=== PATIENT | female | born 1940 | race Caucasian/White ===

== ENCOUNTER → 2017-06-26 | Outpatient (CLI) | payer MEDICARE, OTHER ==
[2017-06-01 16:55] VITALS: BP 181/76
[~2017-06-26] MED LIST: ACETAMINOPHEN; BUPR150T8 PO; CALC600T4 PO; CEFP200T PO; CHOL10003 PO; CHOL500050 PO; CYCL10TA2 PO; DOCU-109 PO; FLUO40CA9 PO; FLUT1DIS3 IH; HYDROCODONE; LEVO100T5 PO; OMEP20CA9 PO; OXYB5TAB PO; OXYC-323 PO; OXYC-327 PO; PRED10TA16 PO; PRED20TA PO; VENTOLIN HFA18 GM IH
--- NOTE | 2017-06-26 12:13 | KCIC ---
EXAM: Dual energy x-ray absorptiometry (DEXA). HISTORY: Postmenopausal female presents for osteoporosis screening. COMPARISON: None. TECHNIQUE: Dual energy x-ray absorptiometry of the lumbar spine and left hip was performed. Calculation of bone mineral density based on standard deviations above or below the expected young adult normal value (T-score) was completed. FINDINGS: The average bone mineral density in the 1st through 4th lumbar vertebrae is 1.165 g/cmxcm, corresponding with a T-score of 1.1. The average total bone mineral density in the left hip is 0.781 g/cmxcm, corresponding with a T-score of -1.3. IMPRESSION: 1. Osteopenia measured at the left hip. 2. Normal bone mineral density measured at the lumbar spine. Note: Definitions established by the World Health Organization: 1. Normal: T-score is -1.0 or above. 2. Osteopenia: T-score is between -1.0 and -2.5 . 3. Osteoporosis: T-score is -2.5 or below. Electronically signed by: Mariam Castillo MD (06/26/2017 12:10 PM) [email or web address]
== END | disposition home or self-care (01) ==
LOC: KCIC DEXA 11:25
PROVIDERS: ATTEND Physician Assistant
DX: Z13.820 Encounter for screening for osteoporosis (principal); Z78.0 Asymptomatic menopausal state; M85.80 Other specified disorders of bone density and structure, unspecified site
CPT/HCPCS: 77080

== ENCOUNTER → 2017-12-30 | Outpatient (CLI) | payer MEDICARE, OTHER ==
[2017-12-30] MEDS: GADOBUTROL 7.5 MMOL/7.5 ML VIAL IV (14:56)
== END | disposition home or self-care (01) ==
LOC: KCIC MRI 13:44
DX: M12.88 Other specific arthropathies, not elsewhere classified, other specified site (principal); M48.07 Spinal stenosis, lumbosacral region; M43.8X4 Other specified deforming dorsopathies, thoracic region
CPT/HCPCS: 72158; A9585

== ENCOUNTER → 2018-01-20 | Outpatient (CLI) | payer MEDICARE, OTHER | END | disposition home or self-care (01) | LOC: KCIC 15:04 | DX: M43.16 Spondylolisthesis, lumbar region (principal); M48.54XD Collapsed vertebra, not elsewhere classified, thoracic region, subsequent encounter for fracture with routine healing; I10 Essential (primary) hypertension; E78.5 Hyperlipidemia, unspecified; E03.9 Hypothyroidism, unspecified | CPT/HCPCS: 72100 ==

== ENCOUNTER → 2018-02-11 | Outpatient (CLI) | payer MEDICARE, OTHER ==
[2018-02-11 14:20] LABS: ADD MAN DIFF? NO
[2018-02-11 14:22] LABS: BASO # 0.1 x10^3/uL (0.0-0.2); BASO % 1 % (0-3); EOS # 0.1 x10^3/uL (0.0-0.7); EOS % 1 % (0-3); HEMATOCRIT 35.9 % (36.0-47.0); HEMOGLOBIN 11.8 g/dL (12.0-15.5); LYMPH # 1.6 x10^3/uL (1.0-4.8); LYMPH % 17 % (24-48); MEAN CORPUSCULAR HEMOGLOBIN 30 pg (25-35); MEAN CORPUSCULAR HGB CONC 33 g/dL (31-37); MEAN CORPUSCULAR VOLUME 91 fL (79-100); MONO # 0.7 x10^3/uL (0.0-1.1); MONO % 7 % (0-9); NEUT # 6.9 x10^3uL (1.8-7.7); NEUT % 74 % (31-73); PLATELET COUNT 109 x10^3/uL (140-400); RED BLOOD COUNT 3.96 x10^6/uL (3.50-5.40); RED CELL DISTRIBUTION WIDTH 15.3 % (11.5-14.5); WHITE BLOOD COUNT 9.2 x10^3/uL (4.0-11.0)
[2018-02-11 14:40] LABS: ALBUMIN 2.8 g/dL (3.4-5.0); ALBUMIN/GLOBULIN RATIO 0.7 (1.0-1.7); BLOOD UREA NITROGEN 12 mg/dL (7-20); BUN/CREATININE RATIO 12 (6-20); CALCIUM 8.5 mg/dL (8.5-10.1); GLUCOSE 123 mg/dL (70-99); TOTAL PROTEIN 6.7 g/dL (6.4-8.2)
[2018-02-11 14:41] LABS: ALK PHOS 80 U/L (46-116); ALT (SGPT) 15 U/L (14-59); ANION GAP 5 (6-14); AST (SGOT) 13 U/L (15-37); CARBON DIOXIDE 32 mmol/L (21-32); CHLORIDE 104 mmol/L (98-107); GFR 53.9; POTASSIUM 3.9 mmol/L (3.5-5.1); SODIUM 141 mmol/L (136-145); TOTAL BILIRUBIN 0.3 mg/dL (0.2-1.0)
[2018-02-13 13:51] LABS: MRSA BY PCR Negative (Negative)
== END | disposition home or self-care (01) ==
LOC: SURGPAT 13:23
DX: Z01.818 Encounter for other preprocedural examination (principal); M51.16 Intervertebral disc disorders with radiculopathy, lumbar region; M48.062 Spinal stenosis, lumbar region with neurogenic claudication; J44.9 Chronic obstructive pulmonary disease, unspecified; I10 Essential (primary) hypertension; I25.10 Atherosclerotic heart disease of native coronary artery without angina pectoris; G43.809 Other migraine, not intractable, without status migrainosus; E11.9 Type 2 diabetes mellitus without complications; G30.8 Other Alzheimer's disease; F02.80 Dementia in other diseases classified elsewhere, unspecified severity, without behavioral disturbance, psychotic disturbance, mood disturbance, and anxiety
CPT/HCPCS: 36415; 80053; 85025; 87641

== ENCOUNTER 2018-02-18 10:33 | Observation (INO) | payer MEDICARE, OTHER ==
[~2018-02-18 10:33] MED LIST changes: -ACETAMINOPHEN; -BUPR150T8 PO; -CALC600T4 PO; -CEFP200T PO; -CHOL10003 PO; -CHOL500050 PO; -CYCL10TA2 PO; -DOCU-109 PO; -FLUO40CA9 PO; -FLUT1DIS3 IH; -HYDROCODONE; -LEVO100T5 PO; +LIDOCAINE 1% PF 2 ML VIAL. ID; +MORPHINE SULFATE 2 MG/ML DISP.SYRIN. IV; -OMEP20CA9 PO; -OXYB5TAB PO; -OXYC-323 PO; -OXYC-327 PO; -PRED10TA16 PO; -PRED20TA PO; +PROCHLORPERAZINE 10 MG/2 ML VIAL. IV; -VENTOLIN HFA18 GM IH; +fentaNYL PF VIAL 100 MCG/2 ML VIAL IV
[2018-02-18] MEDS ORDERED: PROPOFOL 20 ML IV (10:40)
[2018-02-18] MEDS ORDERED: PROPOFOL 50 ML IV (10:40)
[2018-02-18] MEDS ORDERED: LIDOCAINE 2% PF Vial for OR 5 ML VIAL. (10:40)
[2018-02-18] MEDS ORDERED: ROCURONIUM 50 MG/5 ML VIAL. (10:41)
[2018-02-18] MEDS ORDERED: fentaNYL PF VIAL 250 MCG/5 ML VIAL (10:41)
[2018-02-18] MEDS: IV RINGERS,LACTATED 1000ML 1,000 ML IV (11:13)
[2018-02-18] MEDS ORDERED: REMIFENTANIL 1 MG VIAL. IV (11:25)
[2018-02-18] MEDS ORDERED: PHENYLEPHRINE 10 MG/ML VIAL. (11:31)
[2018-02-18] MEDS: THROMBIN TOPICAL 20,000 UNIT SPRAY.SYRN KIT TP (12:57)
[2018-02-18] MEDS: BACITRACIN 50,000 UNIT in IV NORMAL SALINE 1000ML BAG 1,000 ML IRR (12:57)
[2018-02-18] MEDS: BUPIVAC MPF-EPI 0.5%-1:200000 30 ML VIAL. INJ (12:57)
[2018-02-18] MEDS: KETOROLAC 60 MG/2 ML INJ FOR OR. (12:57)
[2018-02-18] MEDS: GELATIN SPONGE SIZE 100. (12:57)
[2018-02-18] MEDS ORDERED: DEXAMETHASONE SOD PHOS 20 MG/5 ML VIAL. (13:01)
[2018-02-18] MEDS ORDERED: ONDANSETRON PF 4 MG/2 ML VIAL. (13:01)
[2018-02-18] MEDS ORDERED: GLYCOPYRROLATE 1 MG/5 ML VIAL. (13:31)
[2018-02-18] MEDS ORDERED: NEOSTIGMINE METHYLSULFATE 5 MG/5 ML SYRINGE. (13:31)
[2018-02-18] MEDS ORDERED: MAG HYDROX/ALUMINUM HYD/SIMETH 30 ML ORAL.SUSP PO (15:00)
[2018-02-18] MEDS ORDERED: 0.9 % SODIUM CHLORIDE 10 ML DISP.SYRIN. IV (15:00)
[2018-02-18] MEDS ORDERED: fentaNYL PF VIAL 100 MCG/2 ML VIAL IV (15:00)
[2018-02-18] MEDS ORDERED: MAGNESIUM HYDROXIDE 2,400 MG/30 ML ORAL.SUSP. PO (15:00)
[2018-02-18] MEDS ORDERED: diphenhydrAMINE 50 MG/ML VIAL IV (15:00)
[2018-02-18] MEDS ORDERED: diphenhydrAMINE HCL 25 MG CAPSULE PO (15:00)
[2018-02-18] MEDS ORDERED: ACETAMINOPHEN 325 MG TABLET. PO (15:00)
[2018-02-18] MEDS ORDERED: CALCIUM CARBONATE 500 MG TAB.CHEW PO (15:00)
[2018-02-18] MEDS ORDERED: oxyCODONE/APAP 5/325 1 TAB TABLET PO (15:00)
[2018-02-18] MEDS: fentaNYL PF VIAL 100 MCG/2 ML VIAL IV ×5 (15:23→16:58)
[2018-02-18] MEDS: POTASSIUM CL 20MEQ D5-0.45NACL 1,000 ML IV (16:56)
[2018-02-18] MEDS: oxyCODONE/APAP 5/325 1 TAB TABLET PO (19:49)
[2018-02-18] MEDS: DOCUSATE SODIUM 100 MG CAPSULE. PO (20:40)
[2018-02-18] MEDS: METHOCARBAMOL 750 MG TABLET PO (20:40)
[2018-02-18] MEDS: OXYBUTYNIN CHLORIDE 5 MG TABLET PO (20:40)
[2018-02-18] MEDS: BUDESONIDE 0.5 MG/2 ML NEBU. NEB (22:13)
[2018-02-18] MEDS: ALBUTEROL SULFATE 2.5 MG/3 ML NEBU. NEB (22:13)
[2018-02-19] MEDS: oxyCODONE/APAP 5/325 1 TAB TABLET PO ×3 (03:30→11:15)
[2018-02-19] MEDS: POTASSIUM CL 20MEQ D5-0.45NACL 1,000 ML IV (04:17)
[2018-02-19] MEDS: LEVOTHYROXINE 100 MCG TABLET PO (06:17)
[2018-02-19] MEDS: fentaNYL PF VIAL 100 MCG/2 ML VIAL IV (06:17)
[2018-02-19] MEDS: BUDESONIDE 0.5 MG/2 ML NEBU. NEB (07:04)
[2018-02-19] MEDS: ALBUTEROL SULFATE 2.5 MG/3 ML NEBU. NEB ×2 (07:05→11:33)
[2018-02-19] MEDS: MULTIVITAMIN with MINERAL TABLET. PO (08:17)
[2018-02-19] MEDS: DOCUSATE SODIUM 100 MG CAPSULE. PO (08:17)
[2018-02-19] MEDS: CITALOPRAM 10 MG TABLET. PO (08:17)
[2018-02-19] MEDS: buPROPion XL 150 MG TAB.ER.24H. PO (08:17)
[2018-02-19] MEDS: METHOCARBAMOL 750 MG TABLET PO ×2 (08:17→11:14)
[2018-02-19] MEDS ORDERED: NON FORMULARY ITEM (Fluticasone/Salmeterol (Advair 250-50 Diskus) 1 EACH) IH (09:00)
== END 2018-02-19 12:30 | disposition home or self-care (01) ==
LOC: SURG 10:33 → 4 SOUTHEST 16:27
DX: M48.062 Spinal stenosis, lumbar region with neurogenic claudication (principal); M54.16 Radiculopathy, lumbar region; J44.9 Chronic obstructive pulmonary disease, unspecified; M43.16 Spondylolisthesis, lumbar region; Z82.0 Family history of epilepsy and other diseases of the nervous system; Z82.49 Family history of ischemic heart disease and other diseases of the circulatory system; Z83.3 Family history of diabetes mellitus; Z85.3 Personal history of malignant neoplasm of breast; Z92.3 Personal history of irradiation
CPT/HCPCS: 63047; 76000; 88304; 88311; 94640; 96374; 96376; 97161-GP; A7015; G0378; G0379; G8978-CI-GP; G8979-CI-GP; G8980-CI-GP; J0690; J1100; J1885; J2001; J2405; J2704; J2710; J3010; J3490; J7030; J7613; J7626

== ENCOUNTER → 2018-05-20 | Outpatient (CLI) | payer MEDICARE, OTHER ==
[2018-02-19 11:38] VITALS: BP 123/63
[~2018-05-20] MED LIST changes: +ACETAMINOPHEN; +BUPR150T8 PO; +BUPR300T3 PO; +CALC600T4 PO; +CEFP200T PO; +CHOL10003 PO; +CHOL500050 PO; +CITA10TA4 PO; +CYCL10TA2 PO; +DOCU-109 PO; +FLUO40CA9 PO; +FLUT1DIS3 IH; +HYDROCODONE; +LEVO100T5 PO; -LIDOCAINE 1% PF 2 ML VIAL. ID; -MORPHINE SULFATE 2 MG/ML DISP.SYRIN. IV; +MULT1TAB52 PO; +OMEP20CA9 PO; +OXYB5TAB PO; +OXYC-323 PO; +OXYC-327 PO; +PRED10TA16 PO; +PRED20TA PO; -PROCHLORPERAZINE 10 MG/2 ML VIAL. IV; +VENTOLIN HFA18 GM IH; -fentaNYL PF VIAL 100 MCG/2 ML VIAL IV
--- NOTE | 2018-05-20 14:22 | KCIC ---
4 views lumbar spine compared to similar study dated January 202017 for back pain, postop surgery, history of vertebroplasty. FINDINGS: There is redemonstration of a severe anterior compression deformity at T12, status post vertebral augmentation, with large volume of cement extruded into the anterior vertebral body. There is an angular kyphosis at this level. There may be mild anterolisthesis of T11 on T12 as well, and a bony central canal stenosis at this level could be present given this configuration. There is grade 1 anterolisthesis of L4 on L5, with narrowing of intervertebral disc spaces at virtually all lumbar levels. Minimal retrolisthesis of L2 on L3 is present. Facet arthrosis is seen at multiple levels. No new fracture or acute osseous abnormality. IMPRESSION: 1. Severe compression deformity of T12 status post vertebral augmentation, resulting in severe angular kyphosis at this level. There may be slight anterolisthesis of T11 on T12 as well. If there is clinical concern for central bony canal stenosis, further evaluation with MRI would add clarity. 2. Multilevel degenerative changes throughout the lumbar spine. Electronically signed by: Ata Coughlin MD (05/20/2018 2:19 PM) [email or web address]
== END | disposition home or self-care (01) ==
LOC: KCIC 10:16
PROVIDERS: ATTEND Neurological Surgery
DX: M51.36 Other intervertebral disc degeneration, lumbar region (principal); M43.16 Spondylolisthesis, lumbar region; M48.061 Spinal stenosis, lumbar region without neurogenic claudication; M40.294 Other kyphosis, thoracic region; M43.8X4 Other specified deforming dorsopathies, thoracic region
CPT/HCPCS: 72110

== ENCOUNTER → 2018-08-06 | Outpatient (CLI) | payer MEDICARE, OTHER ==
[2018-02-19 11:38] VITALS: BP 123/63
[~2018-08-06] MED LIST changes: +OMEP20CA10 PO; -OMEP20CA9 PO; -OXYC-323 PO; -OXYC-327 PO; +OXYC1TAB15 PO; +OXYC1TAB19 PO
--- NOTE | 2018-08-06 13:52 | KCIC ---
EXAM: Pelvis, single view. HISTORY: Sciatica. COMPARISON: 05/20/2018 FINDINGS: A frontal view of the pelvis is obtained. There is no fracture, dislocation or subluxation. There are stable prominent sacroiliac joints with subchondral sclerosis. The femoral heads are normal in configuration. There is degenerative change at the lower lumbar levels. IMPRESSION: No acute osseous finding. Electronically signed by: Mariam Castillo MD (08/06/2018 1:48 PM) [facility]
== END | disposition home or self-care (01) ==
LOC: KCIC 13:29
PROVIDERS: ATTEND Internal Medicine Rheumatology
DX: M47.816 Spondylosis without myelopathy or radiculopathy, lumbar region (principal)
CPT/HCPCS: 72170

== ENCOUNTER → 2018-12-10 | Outpatient (CLI) | payer MEDICARE, OTHER ==
[2018-02-19 11:38] VITALS: BP 123/63
[~2018-12-10] MED LIST changes: +IOHEXOL 240 MG/ML 50ML VIAL. PO ONE; +IOHEXOL 300 MG/ML 100ML VIAL. IV ONE
--- NOTE | 2018-12-10 11:50 | KCIC ---
CT abdomen pelvis with contrast dated 12/10/2018. Comparison made to 09/22/2015. CLINICAL INDICATION: Left-sided back pain and abdominal pain. History of colon resection and left breast cancer. TECHNIQUE: Contiguous axial imaging the abdomen and pelvis performed after the administration of 89 cc Omnipaque 300. One or more of the following individualized dose reduction techniques were utilized for this examination: 1. Automated exposure control 2. Adjustment of the mA and/or kV according to patient size 3. Use of iterative reconstruction technique. FINDINGS: Limited images of lung bases show linear scar or atelectasis in the lower lobes. Heart size mildly enlarged. No pleural or pericardial effusion. Liver is of diffuse low density compatible with fatty infiltration. No apparent mass. Biliary tree normal in caliber. Gallbladder unremarkable. Spleen is normal in size. Pancreas is atrophic. Low-density nodule at the left adrenal gland measures 1.8 cm in size, unchanged. Right adrenal gland is unremarkable. Kidneys are symmetric in size and enhancement. No hydronephrosis. Evidence of prior right colon resection. There are scattered diverticula throughout the descending and sigmoid colon without significant pericolonic inflammatory changes. The small bowel is normal in caliber. No ascites or lymphadenopathy. Abdominal aorta normal in caliber. Images of pelvis show nondistended urinary bladder. Uterus is surgically absent. No free fluid or lymphadenopathy. Bone windows show severe wedge compression deformity of T12 status post vertebroplasty. Mild wedging at the inferior endplate of T11 has slightly progressed from prior study. Multilevel spondylosis. IMPRESSION: 1. No acute abnormality of abdomen or pelvis. 2. No significant interval change in left adrenal mass, likely adenoma. 3. Severe wedge compression deformity at T12 status post vertebroplasty. There is mild wedging of the inferior endplate of T11 that has slightly progressed from prior exam and could be related to progressive degeneration or mild endplate microcompression. 4. Diverticulosis with no evidence of acute diverticulitis. Electronically signed by: Travis Melendez MD (12/10/2018 11:47 AM) [email or web address]
== END | disposition home or self-care (01) ==
LOC: KCIC CT 09:35
PROVIDERS: ATTEND Family Medicine
DX: K57.30 Diverticulosis of large intestine without perforation or abscess without bleeding (principal); E27.8 Other specified disorders of adrenal gland; I11.9 Hypertensive heart disease without heart failure; D73.0 Hyposplenism; M47.819 Spondylosis without myelopathy or radiculopathy, site unspecified; M43.8X4 Other specified deforming dorsopathies, thoracic region; J44.9 Chronic obstructive pulmonary disease, unspecified; F17.200 Nicotine dependence, unspecified, uncomplicated; Z90.49 Acquired absence of other specified parts of digestive tract; Z90.710 Acquired absence of both cervix and uterus; Z85.3 Personal history of malignant neoplasm of breast
CPT/HCPCS: 74177; 82565; Q9966; Q9967

== ENCOUNTER → 2019-01-04 | Outpatient (CLI) | payer MEDICARE, OTHER ==
[2018-02-19 11:38] VITALS: BP 123/63
[~2019-01-04] MED LIST changes: -IOHEXOL 240 MG/ML 50ML VIAL. PO ONE; -IOHEXOL 300 MG/ML 100ML VIAL. IV ONE
--- NOTE | 2019-01-04 15:03 | KCIC ---
MRI of the lumbar spine without contrast 01/04/2019 CLINICAL HISTORY: Chronic low back pain. History of previous lumbar spine surgery and kyphoplasty. TECHNIQUE: Unenhanced T1-weighted and T2-weighted sagittal and axial and inversion recovery sagittal images of the lumbar spine were obtained. FINDINGS: Comparison study is dated 12/30/2017. Moderate S-shaped curvature of the thoracolumbar spine is seen. Focal kyphosis of the thoracolumbar junction is again seen. The patient is post kyphoplasty type procedure for an old compression fracture involving the T12 vertebral body. Retropulsion of bone fragments into the central spinal canal is seen measuring 5 mm in AP diameter. This effaces the anterior CSF resulting in mild central spinal canal stenosis deforming the anterior surface of the distal thoracic spinal cord without impinging upon it. These findings are unchanged. No acute compression fracture of the lumbar vertebrae seen. Degenerative signal changes and loss of height are seen involving all of the disks of the lumbar spine. Degenerative signal changes are seen within the marrow surrounding these discs. Mild anterolisthesis of L4 in relation L5 is noted. The conus medullaris is normal in position and signal characteristics. At the L1-2 disc space is a mild generalized disc bulge. Degenerative changes are seen involving the facet joints bilaterally. These findings do not result in significant central spinal canal or neural foraminal stenosis. At the L2-3 disc space there is a mild generalized disc bulge. Degenerative changes are seen involving the facet joints bilaterally. There are small facet joint effusions bilaterally. There is mild to moderate ligamentum flavum hypertrophy bilaterally. These findings when combined result in mild central spinal canal stenosis. No neural foraminal stenosis is seen. At the L3-4 disc space there is a mild generalized disc bulge. Degenerative changes are seen involving the facet joints bilaterally. These findings do not result in significant central spinal canal or neural foraminal stenosis. At the L4-5 disc space, the patient is post left hemilaminotomy. There is a mild generalized disc bulge. Degenerative changes are seen involving the facet joints bilaterally. These findings do not result in significant central spinal canal stenosis. Mild right neural foraminal stenosis is seen. The left neural foramen is patent. At the L5-S1 disc space there is a minimal generalized disc bulge. Superimposed on this disc bulge is a focal central disc protrusion. This measures 3 mm in AP diameter. Degenerative changes are seen involving the facet joints bilaterally. There is mild ligamentum flavum hypertrophy bilaterally. These findings when combined do not result in significant central spinal canal or neural foraminal stenosis. Since the previous examination there has been no significant interval change. IMPRESSION: 1. Post kyphoplasty type procedure for an old compression fracture involving the T12 vertebral body. Retropulsion of bone fragments into the central spinal canal stenosis is again seen resulting in mild central spinal canal stenosis. No acute compression fracture of the lumbar vertebrae is seen. 2. Post left hemilaminotomy at L4-5. 3. The changes of degenerative disc disease are seen throughout the lumbar spine. These findings result in mild central spinal canal stenosis at L2-3. Mild right neural foraminal stenosis is seen at L4-5. Electronically signed by: Maurice Muhammad MD (01/04/2019 3:01 PM) [email or web address]
== END | disposition home or self-care (01) ==
LOC: KCIC MRI 11:18
PROVIDERS: ATTEND Family Medicine
DX: M51.36 Other intervertebral disc degeneration, lumbar region (principal); M48.061 Spinal stenosis, lumbar region without neurogenic claudication; M51.27 Other intervertebral disc displacement, lumbosacral region; M89.38 Hypertrophy of bone, other site; M40.295 Other kyphosis, thoracolumbar region; G89.29 Other chronic pain
CPT/HCPCS: 72148

== ENCOUNTER → 2019-06-21 | Outpatient (CLI) | payer MEDICARE, OTHER ==
[2018-02-19 11:38] VITALS: BP 123/63
[~2019-06-21] MED LIST changes: +CONTRAST GIVEN. MC PRN; +IOHEXOL 240 MG/ML 50ML VIAL. PO ONE; +IOHEXOL 300 MG/ML 100ML VIAL. IV ONE; +OMEP-229 PO; -OMEP20CA10 PO; -OXYB5TAB PO; +OXYB5TAB3 PO
--- NOTE | 2019-06-21 16:57 | KCIC ---
CT ABD PELV W/ORAL IV CONTRAST Indication: Epigastric pain, nausea. Pain since February. Hysterectomy. Exposure: One or more of the following individualized dose reduction techniques were utilized for this examination: 1. Automated exposure control 2. Adjustment of the mA and/or kV according to patient size 3. Use of iterative reconstruction technique. Technique: Intravenous contrast was given. Oral contrast was given. Comparison: 12/10/2018. FINDINGS: Lung bases are clear. Mild coronary artery calcification. Liver is unremarkable. Spleen is unremarkable with a central calcification, likely granuloma. Pancreas appears unremarkable. Left adrenal nodule measures 1.8 cm, unchanged in size and appearance since prior exam. No right adrenal nodule. Kidneys demonstrate symmetric enhancement. No evidence of hydronephrosis. No calcified gallstone. Aorta is calcified and ectatic, without evidence of aneurysm. No significant lymph node enlargement. Mild proximal small bowel wall thickening is likely due to lack of distention. No significant small bowel distention is seen. Mild retained stool in the colon and rectum. Postsurgical changes at the right colon. Colonic diverticulosis. Mild wall thickening of the sigmoid colon, appears similar as the previous exam and is probably chronic and related to diverticulosis. No new acute paracolonic inflammatory type changes to suggest acute colitis. Urinary bladder appears unremarkable. No significant ascites or pneumoperitoneum. Severe degenerative spondylosis. Severe compression fracture with fragments separation at T12 is again identified. Appearance and alignment appears similar. IMPRESSION: 1. Colonic diverticulosis. No definite significant change or paracolonic inflammatory finding to suggest acute diverticulitis. 2. Stable left adrenal nodule. 3. No new acute findings. Electronically signed by: Travis Cohen MD (06/21/2019 4:54 PM) [facility]
== END | disposition home or self-care (01) ==
LOC: KCIC CT 10:08
PROVIDERS: ATTEND Family Medicine
DX: K57.30 Diverticulosis of large intestine without perforation or abscess without bleeding (principal); E27.8 Other specified disorders of adrenal gland; I25.10 Atherosclerotic heart disease of native coronary artery without angina pectoris; I70.0 Atherosclerosis of aorta; I77.819 Aortic ectasia, unspecified site; M47.814 Spondylosis without myelopathy or radiculopathy, thoracic region; M48.54XA Collapsed vertebra, not elsewhere classified, thoracic region, initial encounter for fracture; J44.9 Chronic obstructive pulmonary disease, unspecified; Z87.891 Personal history of nicotine dependence
CPT/HCPCS: 74177; 82565; Q9966; Q9967

== ENCOUNTER → 2020-01-18 | Outpatient (CLI) | payer MEDICARE, OTHER ==
[2019-07-15 07:00] VITALS: BP 131/60
[~2020-01-18] MED LIST changes: +ALBU0.63 NEB; +CHOL200027 PO; -CONTRAST GIVEN. MC PRN; -IOHEXOL 240 MG/ML 50ML VIAL. PO ONE; -IOHEXOL 300 MG/ML 100ML VIAL. IV ONE; +IPRA3AMP29 NEB; +MULT-445 PO; -MULT1TAB52 PO; -OMEP-229 PO; +OMEP20CA16 PO; +OXYB-36 PO; -OXYB5TAB3 PO
--- NOTE | 2020-01-20 12:58 | KCIC ---
Bilateral digital screening mammograms with 3-D tomosynthesis: Reason for examination: Routine screening. History of left breast cancer with lumpectomy. Comparison is made to previous studies dated 12/28/2018 and 12/23/2017. Bilateral mammograms in CC and oblique projections were obtained with 2-D imaging and 3-D tomosynthesis imaging on a Siemens Inspiration unit and reviewed on the workstation. Interpretation was made with the benefit of CAD. The skin and nipples show no abnormalities. No abnormal axillary lymph nodes are seen. The breast parenchyma shows scattered fatty and fibroglandular density. (Breast density: Category B.) There are postop changes in the left breast. There is a small circumscribed nodule at the 10:00 B position of the right breast. There is also suggestion of some possible nodularity in the subareolar 11:00 position of the left breast. Further evaluation with ultrasound is recommended. Impression: Nodular density at the 10:00 B position of the right breast and nodularity at the subareolar 11:00 position of the left breast. Further evaluation with ultrasound is recommended. BI-RADS Category 0: Incomplete. Needs additional imaging evaluation. "Our facility is accredited by the [employer] Mammography [employer]." This patient's information has been entered into a reminder system for the patient to be notified with the results of her examination and a target date for the next mammogram. Electronically signed by: Rosa Maria Starr MD (01/20/2020 12:55 PM) [email or web address]
== END | disposition home or self-care (01) ==
LOC: KCIC MAMMO 08:46
PROVIDERS: ATTEND Family Medicine
DX: Z12.31 Encounter for screening mammogram for malignant neoplasm of breast (principal); N64.89 Other specified disorders of breast
CPT/HCPCS: 77063; 77067

== ENCOUNTER → 2020-01-26 | Outpatient (CLI) | payer MEDICARE, OTHER ==
[2019-07-15 07:00] VITALS: BP 131/60
[~2020-01-26] MED LIST changes: -CALC600T4 PO; +CALC600T5 PO
--- NOTE | 2020-01-26 16:59 | KCIC ---
Examination: SHOULDER 2+V RIGHT History: Reason: CHRONIC RT SHOULDER PAIN, NO INJURY / Spl. Instructions: / History: Comparison/Correlation: None Findings: Total 3 images the right shoulder were obtained. A chronic lacunar and glenohumeral joints are unremarkable. No fracture or bone destruction. No significant degenerative change for the patient's age. Visualized right upper lung field is unremarkable. Impression: No suspicious. Electronically signed by: Thom Choudhury MD (01/26/2020 4:56 PM) [id number]
== END | disposition home or self-care (01) ==
LOC: KCIC 13:38
PROVIDERS: ATTEND Family Medicine
DX: M25.511 Pain in right shoulder (principal)
CPT/HCPCS: 73030

== ENCOUNTER → 2020-02-10 | Outpatient (CLI) | payer MEDICARE, OTHER ==
[2019-07-15 07:00] VITALS: BP 131/60
--- NOTE | 2020-02-10 14:08 | KCIC ---
Bilateral breast ultrasound COMPARISON: Bilateral mammogram and tomosynthesis January 18, 2020 and December 28, 2018. HISTORY: Bilateral breast asymmetries. History of left breast likely status post lumpectomy. FINDINGS: Right breast 10:00 position 7 cm from the nipple demonstrates a 4 x 2 mm oval parallel circumscribed hypoechoic nonshadowing probable cystic lesion considered probably benign concordant with the mammographic finding. Left breast demonstrates no subareolar abnormality with subareolar dense glandular tissue and ductal structures concordant with the mammographic area of interest, imaging features are benign. No suspicious abnormality of the breasts. No axillary adenopathy. IMPRESSION: Negative left breast ultrasound. Probably benign right upper outer breast fibrocystic lesion. These findings are concordant with the mammographic areas of interest. Follow-up right breast ultrasound in 6 months is advised. Continue routine screening mammography. BI-RADS Category 3: Probably benign Electronically signed by: Dandre Cho MD (02/10/2020 2:05 PM) [email or web address]
== END | disposition home or self-care (01) ==
LOC: KCIC US 13:02
PROVIDERS: ATTEND Family Medicine
DX: R92.8 Other abnormal and inconclusive findings on diagnostic imaging of breast (principal)
CPT/HCPCS: 76641

== ENCOUNTER → 2020-04-04 | Outpatient (CLI) | payer MEDICARE, OTHER ==
[2019-07-15 07:00] VITALS: BP 131/60
[~2020-04-04] MED LIST changes: -CALC600T5 PO; +CALC600T6 PO
--- NOTE | 2020-04-04 17:02 | KCIC ---
WRIST BILAT 3V, HAND BILAT 3V 04/04/2020 12:00 AM INDICATION: Injury and bruising of the bilateral fifth digits with wrist pain after fall COMPARISON: None available. TECHNIQUE: 3 views of the left wrist, 3 views the right wrist and 3 views of the left hand and 3 views the right hand are provided. FINDINGS/ IMPRESSION: Left hand and wrist: There is diffuse osteopenia. There is moderate to advanced joint space narrowing involving the first carpometacarpal joint with subcortical sclerosis and marginal osteophytosis compatible with advanced osteoarthrosis. Scaphoid is intact. Mild interphalangeal joint space narrowing involving the second through fifth digits. No acute fracture. Right hand and wrist: There is moderate joint space narrowing involving the first metacarpal joint. There is a mildly displaced fracture involving the scaphoid waist. There is intercarpal degenerative changes between the scaphoid and trapezium. There is a mildly displaced fracture of the trapezium with intra-articular extension of the first carpometacarpal joint. There may be a nondisplaced fracture involving the base of the second metacarpal. Further catheterization with CT could be of benefit. No definite perilunate dislocation. Electronically signed by: Celine Lazar MD (04/04/2020 4:59 PM) [id number]
== END | disposition home or self-care (01) ==
LOC: KCIC 12:47
PROVIDERS: ATTEND Physician Assistant Medical
DX: S69.91XA Unspecified injury of right wrist, hand and finger(s), initial encounter (principal); S69.92XA Unspecified injury of left wrist, hand and finger(s), initial encounter; M85.88 Other specified disorders of bone density and structure, other site; M19.031 Primary osteoarthritis, right wrist; M19.041 Primary osteoarthritis, right hand; W19.XXXA Unspecified fall, initial encounter; Y93.89 Activity, other specified; Y92.89 Other specified places as the place of occurrence of the external cause; Y99.8 Other external cause status
CPT/HCPCS: 73110; 73130

== ENCOUNTER → 2020-04-07 | Outpatient (CLI) | payer MEDICARE, OTHER ==
[2019-07-15 07:00] VITALS: BP 131/60
--- NOTE | 2020-04-07 11:18 | KCIC ---
CT MAXILLOFACIAL WO CONTRAST, CT HEAD WO CONTRAST History: Reason: FELL 4 DAYS AGO, HIT FACE, BRUISING AND SWELLING / Spl. Instructions: / History: Pain Comparison: None. Technique: Noncontrast CT imaging was performed of the head and maxillofacial. Coronal and sagittal reconstructions were performed. Exposure: One or more of the following individualized dose reduction techniques were utilized for this examination: 1. Automated exposure control 2. Adjustment of the mA and/or kV according to patient size 3. Use of iterative reconstruction technique. Findings: Head CT: No intracranial hemorrhage. No mass effect. No hydrocephalus. Partially empty sella, often incidental. Mild foci of decreased attenuation within the hemispheric white matter, most often due to chronic microvascular ischemia. Maxillofacial CT: No acute maxillofacial fracture. Orbits are unremarkable. Mild maxillary sinus mucosal thickening. Mastoid air cells are clear. TMJ arthropathy. No acute calvarial fracture. Impression: Head CT: 1. No acute intracranial abnormality. Maxillofacial CT: 1. No acute maxillofacial fracture. Electronically signed by: Solo Aguilar DO (04/07/2020 11:15 AM) [id number]
== END ==
LOC: KCIC CT 10:16
PROVIDERS: ATTEND Physician Assistant Medical
DX: S00.33XA Contusion of nose, initial encounter (principal); S00.532A Contusion of oral cavity, initial encounter; S69.92XA Unspecified injury of left wrist, hand and finger(s), initial encounter; S69.91XA Unspecified injury of right wrist, hand and finger(s), initial encounter; S00.83XA Contusion of other part of head, initial encounter; D69.3 Immune thrombocytopenic purpura; Y93.89 Activity, other specified; W19.XXXA Unspecified fall, initial encounter; Y92.89 Other specified places as the place of occurrence of the external cause; Y99.8 Other external cause status
CPT/HCPCS: 70450; 70486

== ENCOUNTER → 2020-08-10 | Outpatient (CLI) | payer MEDICARE, OTHER ==
[2020-06-02 07:05] VITALS: BP 151/70
[~2020-08-10] MED LIST changes: +ACET325T9 PO; +OXYC-325 PO; +OXYC5CAP PO
--- NOTE | 2020-08-10 15:36 | RAD ---
Examination: Limited right breast ultrasound. INDICATION: Six-month follow-up probably benign right breast mass. Personal history of malignant left breast biopsy in 2000. COMPARISON: Bilateral mammograms of 01/18/2020 and right breast ultrasound of 02/10/2020 TECHNIQUE AND FINDINGS: Grayscale and color Doppler imaging of the right breast in the area of previo us sonographic interest at the 10:00 position 7 cm from the nipple shows a 3 mm oval parallel orienta tion mass deep in the right breast tissue isoechoic to fatty breast tissue. Sonographic survey of the right axilla revealed no adenopathy or mass. IMPRESSION: Probably benign sonographic findings. BI-RADS Category 3 Probably benign findings Recommend follow-up right breast ultrasound at the time that she is due for bilateral mammographic sc reening in 5 months. Electronically signed by: Sidney Villalba MD (08/10/2020 3:34 PM) [id number]
== END ==
LOC: US 08:53
PROVIDERS: ATTEND Family Medicine
DX: R92.8 Other abnormal and inconclusive findings on diagnostic imaging of breast (principal)
CPT/HCPCS: 76641

== ENCOUNTER → 2020-10-10 | Outpatient (CLI) | payer MEDICARE, OTHER ==
[2020-06-02 07:05] VITALS: BP 151/70
--- NOTE | 2020-10-10 17:30 | KCIC ---
EXAM: Sacrum and coccyx, 2 views. HISTORY: Pain. COMPARISON: None. FINDINGS: 2 views of the sacrum and coccyx are obtained. No fracture is seen. There is no lytic or sc lerotic osseous lesion. There is grade 1 anterolisthesis of L4 on L5 and mild retrolisthesis of L2 on L3. There is multilevel endplate remodeling with disc space narrowing involving the lumbar spine. Th e sacroiliac joints and pubis symphysis are intact. There are suspected hemilaminectomy changes at L4 -L5. IMPRESSION: No acute osseous finding. Multilevel listhesis and multilevel degenerative change involvi ng the lumbar spine, not formally assessed on this exam. Electronically signed by: Mariam Castillo MD (10/10/2020 5:27 PM) [email or web address]
== END ==
LOC: KCIC 12:53
PROVIDERS: ATTEND Family Medicine
DX: M47.816 Spondylosis without myelopathy or radiculopathy, lumbar region (principal); M43.16 Spondylolisthesis, lumbar region
CPT/HCPCS: 72220

== ENCOUNTER → 2020-10-13 | Outpatient (CLI) | payer MEDICARE, OTHER ==
[2020-06-02 07:05] VITALS: BP 151/70
--- NOTE | 2020-10-13 17:19 | KCIC ---
Exam performed: X-ray lumbar spine. HISTORY: Back pain DATE OF SERVICE: 10/13/2020. COMPARISON: None available FINDINGS: AP, lateral and cone view of the lumbosacral spine is obtained. Mild scoliosis of the spine with righ tward concavity. There is grade 1 retrolisthesis of L2 over L3 and grade 1 anterolisthesis of L4 over L5, dizziness the last separate vertebral body is identified. Chronic compression fracture T12 statu s post vertebroplasty noted. There are diffuse osteophytes and joint space narrowing consistent with degenerative arthrosis. There is no acute compression fracture. Nonspecific bowel gas pattern is seen . IMPRESSION: Spondylotic changes and multilevel disc degenerative changes involving the lumbar spine as outlined a citlaly. Electronically signed by: Joseline Bains MD (10/13/2020 5:17 PM) [id number]
== END ==
LOC: KCIC 10:55
PROVIDERS: ATTEND Family Medicine
DX: M47.816 Spondylosis without myelopathy or radiculopathy, lumbar region (principal)
CPT/HCPCS: 72100

== ENCOUNTER → 2020-12-07 | Outpatient (CLI) | payer MEDICARE, OTHER ==
[2020-06-02 07:05] VITALS: BP 151/70
[~2020-12-07] MED LIST changes: -CALC600T6 PO; +CALC600T60 PO
--- NOTE | 2020-12-07 15:52 | KCIC ---
3 view study of the left ankle Clinical indications: Left ankle pain less than a week. Swelling. FINDINGS: No acute fracture or dislocation or lytic process is seen. The mortise ankle joint is intac t and no mortise ankle joint effusion is seen. A small plantar spur of the calcaneus is seen. Small d orsal spur of the navicular bone is seen at the navicular cuneiform joint space. IMPRESSION: No acute osseous abnormality. Electronically signed by: Rajiv Gay MD (12/07/2020 3:50 PM) [id number]
== END ==
LOC: KCIC 14:27
PROVIDERS: ATTEND Family Medicine
DX: M77.32 Calcaneal spur, left foot (principal)
CPT/HCPCS: 73610

== ENCOUNTER → 2021-01-23 | Outpatient (CLI) | payer MEDICARE, OTHER ==
[2020-06-02 07:05] VITALS: BP 151/70
--- NOTE | 2021-01-23 10:51 | RAD ---
EXAM: 1. BILATERAL DIGITAL DIAGNOSTIC MAMMOGRAPHY. 2. RIGHT BREAST ULTRASOUND. HISTORY: Personal history of left breast cancer status post breast conservation therapy. Follow-up ri ght breast nodule. TECHNIQUE: Bilateral full field digital images were obtained in CC and MLO projections with tomosynth esis. Computer-aided detection was applied. Right breast ultrasound was also performed. COMPARISON: 01/18/2020, 08/10/2020, 12/28/2018. COMPOSITION: B. There are scattered areas of fibroglandular density. FINDINGS: The vaguely nodular region of concern superolaterally on the right is stable. On today's so nography, at the 10:00 position, 7 cm from the nipple, a 5 x 2 mm hypoechoic region is unchanged. Thi s may represent only normal fatty parenchyma or a complicated cyst. There is no suspicious sonographi c finding. There are no pathologic-appearing right axillary lymph nodes. Elsewhere, post breast conservation therapy changes are noted superolaterally on the left. Associated coarse calcifications are benign. Scattered and vascular calcifications elsewhere are benign. The pa renchymal pattern is stable. BI-RADS CATEGORY 2: Benign. RECOMMENDATION: 1. Continued surveillance mammography in one year. If mammography demonstrates dense breast tissue (heterogenously dense or extremely dense, category C or D), which could hide abnormalities, and if other risk factors for breast cancer have been identifi ed, supplemental screening tests that may be suggested by the ordering physician may be of benefit. D ense breast tissue, in and of itself, is a relatively common condition. Therefore, this information i s not provided to cause undue concern, but rather to raise awareness and to promote discussion with t he referring physician regarding the presence of other risk factors, in addition to dense breast tiss ue. The results of this mammography examination is provided to the patient and referring physician. T he patient should contact their referring physician if any questions or concerns exist regarding this report. PQRS compliance statement - Patient information was entered into a reminder system with a target due date for the next mammogram. "Our facility is accredited by the [employer] Mammography Program." Electronically signed by: Jesús Sesay MD (01/23/2021 10:49 AM) [email or web address]
== END ==
LOC: MAMMO 09:49
PROVIDERS: ATTEND Family Medicine
DX: R92.8 Other abnormal and inconclusive findings on diagnostic imaging of breast (principal)
CPT/HCPCS: 76641; 77066; G0279; 77062

== ENCOUNTER 2021-04-03 16:14 | Emergency (ER) | payer MEDICARE, OTHER ==
[2020-06-02 07:05] VITALS: BP 151/70
== END 2021-04-03 18:31 | disposition left against medical advice (07) ==
LOC: ER 16:14
DX: R06.02 Shortness of breath (principal); R51.9 Headache, unspecified; R50.9 Fever, unspecified; Z53.21 Procedure and treatment not carried out due to patient leaving prior to being seen by health care provider

== ENCOUNTER → 2021-04-27 | Outpatient (CLI) | payer MEDICARE, OTHER ==
[2020-06-02 07:05] VITALS: BP 151/70
[~2021-04-27] MED LIST changes: +IOHEXOL 240 MG/ML 50ML VIAL. PO ONE; +IOHEXOL 300 MG/ML 100ML VIAL. IV ONE
--- NOTE | 2021-04-27 14:20 | KCIC ---
INDICATION: Reason: BLOATING, FATIGUE, LLQ ABDOMINAL PAIN / Spl. Instructions: ORAL AND IV OMNI 300 8 9ML / History: COMPARISON: November 2018 TECHNIQUE: Axial CT images were obtained through the abdomen and pelvis with intravenous contrast. One or more of the following individualized dose reduction techniques were utilized for this examinat ion: 1. Automated exposure control; 2. Adjustment of the mA and/or kV according to patient size; 3 . Use of iterative reconstruction technique. FINDINGS: Linear opacity at bilateral lung base could be atelectasis or infiltrate. Small pericardial fluid. Could also be from pericardial thickening and appears higher than simple den sity. Vascular: Severe calcific atherosclerosis. Hepatobiliary: Liver is prominent in size. Pancreas: No peripancreatic edema. Spleen: Calcified granulomas. Renal: Repeat demonstration of low-density left adrenal mass measuring 14 x 17 mm which is similar pr ior. Bladder: Prominence of the wall of the anterior aspect of the urinary bladder with some mild haziness of the adjacent fat. Gastrointestinal: Colonic diverticulosis. No dilated loops of bowel to suggest obstruction. Scoliotic curvature the spine with multilevel central canal and neural foraminal stenosis. Grade 1 anterolisthesis of L4 on 5. Mild retrolisthesis of L2 on 3. Severe compression fracture at T1 2 with some retropulsion and central canal stenosis with post kyphoplasty changes. Some of the cement is seen extending into the prevertebral soft tissues. There is also wedging at the L1 vertebral body . Kyphosis at this level. IMPRESSION: * No evidence of bowel obstruction. * Mild prominence the wall the anterior aspect of the urinary bladder with adjacent haziness the fat . Would correlate with symptoms to ensure this is not from a pathologic cause such as cystitis or forrest dder wall lesion. * There is either a small complex pericardial effusion or thickening of the pericardium with causes such as pericarditis not excluded. * No hydronephrosis. * Repeat demonstration of severe compression fracture at T12 Electronically signed by: Jose Rodriguez MD (04/27/2021 2:18 PM) [id number]
== END ==
LOC: KCIC CT 08:56
PROVIDERS: ATTEND Family Medicine
DX: J90 Pleural effusion, not elsewhere classified (principal); R91.8 Other nonspecific abnormal finding of lung field; I70.90 Unspecified atherosclerosis; J84.10 Pulmonary fibrosis, unspecified; E27.8 Other specified disorders of adrenal gland; K57.30 Diverticulosis of large intestine without perforation or abscess without bleeding; M43.16 Spondylolisthesis, lumbar region; M48.54XD Collapsed vertebra, not elsewhere classified, thoracic region, subsequent encounter for fracture with routine healing; M48.56XA Collapsed vertebra, not elsewhere classified, lumbar region, initial encounter for fracture; M40.209 Unspecified kyphosis, site unspecified; M41.9 Scoliosis, unspecified; M48.00 Spinal stenosis, site unspecified; R53.83 Other fatigue; R14.0 Abdominal distension (gaseous); R19.5 Other fecal abnormalities; R10.30 Lower abdominal pain, unspecified
CPT/HCPCS: 74177; 82565; Q9966; Q9967